=== PATIENT | female | born 1980 | race Caucasian/White ===

== ENCOUNTER 2019-03-18 10:48 | Outpatient (CLI) | payer OTHER | END 2019-03-18 11:00 | disposition home or self-care (01) | LOC: RAD 10:48 | DX: M79.601 Pain in right arm (principal); G89.11 Acute pain due to trauma ==

== ENCOUNTER 2019-03-19 07:44 | Outpatient (CLI) | payer OTHER | END 2019-03-19 07:53 | disposition home or self-care (01) | LOC: SONOGRAMA 07:44 | DX: M79.601 Pain in right arm (principal); G89.11 Acute pain due to trauma ==

== ENCOUNTER 2021-02-24 10:13 | Outpatient (CLI) | payer OTHER | END 2021-02-24 10:30 | disposition home or self-care (01) | LOC: RAD 10:13 | PROVIDERS: ATTEND General Practice | DX: M25.461 Effusion, right knee (principal); M25.561 Pain in right knee | CPT/HCPCS: 73718 ==